=== PATIENT | male | born 1935 | race Caucasian/White ===

== ENCOUNTER 2016-12-06 12:12 | Inpatient (IN) | payer MEDICARE ==
[~2016-12-06] VITALS: Ht 177.8 cm; Wt 77.1 kg
[~2016-12-06 12:12] MED LIST: ADLT ASA LOW81 MG PO; ALLOPURINOL300 MG PO; ALTOPREV20 MG OR; AMLODIPINE10 MG PO; ASPIRIN325 M1 OR; BENAZEPRIL10 M1 PO; BENAZEPRIL10 MG PO; BENTYL10 MG PO; CENTRAVITES PO; CENTRUM OR; CIPRO750 MG PO; CLOPIDOGREL75 MG PO; COZAAR50 MG PO; CRESTOR10 MG PO; CRESTOR20 MG PO; CRESTOR5 MG; DICLOFENAC SODI75 MG PO; DICLOFENAC75 MG PO; DIGOXIN0.25 MG PO; DOCUSATE CAL240 MG PO; DOXYCYCL HYC100 MG PO; EQL ASPIRIN325 MG OR; FENOFIBRATE134 MG OR; FISH OIL1000 MG PO; FISH OIL1200 MG OR; FLOMAX0.4 MG OR; GLIPIZIDE ER5 M1 PO; GLIPIZIDE5 MG OR; GLIPIZIDE5 MG PO; GLUCOPHAGE1000 MG OR; GLYB/METFO5 MG/500 M OR; KLOR-CON 1010 ME1 PO; LANOXIN0.25 MG OR; LASIX 20 MG TAB20 MG PO; LEVOTHROID125 MCG PO; LEVOTHYROXIN50 MC1 PO; LEVOTHYROXIN75 MC1 PO; LIPITOR20 MG OR; LOVASTATIN40 MG OR; LOVAZA; LYRICA75 MG PO; MECLIZINE12.5 M1 OR; MEDDOSEPAK PO; METFORMIN1000 MG PO; METOPROL TAR100 M1 PO; METOPROL TAR100 MG PO; METOPROLOL TART50 MG PO; METOPROLOL50 MG OR; NIASPAN500 MG OR; NITROSTAT0.4 MG SL; NORCO1 TA1 PO; PLAVIX75 MG PO; POT CHLORIDE10 ME1 PO; PREVNAR 13 IM; RAN; RANEXA PO; RANEXA500 MG PO; SAVAYSA30 MG PO; TRICOR145 MG OR; TYLENOL 500MG TAB PO; VOLTAREN - GENE75 MG PO; WARFARIN5 MG PO; ZITHROMAX1 GM PO; ZYPREXA2.5 MG PO; [UNRECOGNIZED DRUG - OTHER] PO
[2016-12-06 13:06] LABS: HEMATOCRIT 43.6 % (39.0-50.0); HEMOGLOBIN 15.4 g/dl (14.0-18.0); IMMATURE GRANULOCYTES 0.8 % (0.0-1.0); MEAN CORPUSCULAR HGB 30.7 pG CALC (26.0-32.0); MEAN CORPUSCULAR HGB CONC 35.3 g/L CALC (32.0-36.0); NEUT# 6.84 thou/uL (1.82-7.42); RED BLOOD COUNT 5.01 mill/uL (4.70-6.10); RED CELL DISTRI WIDTH 12.4 % (11.5-15.5)
[2016-12-06 13:17] LABS: INTERNATIONAL NORMALIZED RATIO 2.3 RATIO (0.7-1.3); PROTHROMBIN TIME 27.2 SECONDS (9.0-12.5)
[2016-12-06 13:18] LABS: ALBUMIN 4.2 g/dL (3.2-5.0); ALKALINE PHOSPHATASE 105 u/l (38-126); ANION GAP 17 (6-22 (CALC)); BILIRUBIN, TOTAL 1.6 mg/dL (0.0-1.4); BUN 13 mg/dL (8-23); BUN/CREATININE RATIO 13 (12-20 (CALC)); CALCIUM 9.5 mg/dL (8.4-10.2); CARBON DIOXIDE 23 mmol/l (22-30); CHLORIDE 107 mmol/l (95-108); GFR > 60 ML/MIN (>=60 (CALC)); GFR FOR AFR.AMER. > 60 ML/MIN (>=60 (CALC)); GLUCOSE 119 mg/dL (82-115); POTASSIUM 3.8 mmol/l (3.5-5.1); SGOT/AST 19 u/l (19-48); SGPT/ALT 22 u/l (11-66); SODIUM 143 mmol/l (137-146); TOTAL PROTEIN 7.3 g/dL (6.3-8.2)
[2016-12-06] MEDS ORDERED: CRESTOR10 MG PO (13:23)
[2016-12-06] MEDS ORDERED: METOPROL TAR100 MG PO (13:24)
[2016-12-06] MEDS ORDERED: ALLOPURINOL300 MG PO (13:27)
[2016-12-06] MEDS ORDERED: METFORMIN500 MG PO (13:28)
[2016-12-06] MEDS ORDERED: ASPIRIN81 MG PO (13:29)
[2016-12-06 14:30] VITALS: BP 126/77
[2016-12-06 14:53] LABS: URINE BILIRUBIN - DIPSTICK NEGATIVE (NEGATIVE); URINE BLOOD DIPSTICK NEGATIVE (NEGATIVE); URINE CLARITY CLEAR; URINE COLOR YELLOW; URINE GLUCOSE - DIPSTICK NEGATIVE (NEGATIVE); URINE KETONE TRACE mg/dL (NEGATIVE); URINE LEUK ESTERASE NEGATIVE (NEGATIVE); URINE NITRITE - DIPSTICK NEGATIVE (Negative); URINE PH 5.5 (4.5-8.0); URINE PROTEIN - DIPSTICK NEGATIVE (NEG-TRACE); URINE SPECIFIC GRAVITY >=1.030; URINE UROBILINOGEN - DIPSTICK 0.2 E.U./dL (0.2)
[2016-12-06] MEDS ORDERED: LEVOTHYROXIN125 MCG PO (15:21)
[2016-12-06] MEDS ORDERED: AMLODIPINE5 MG PO (15:21)
[2016-12-06] MEDS ORDERED: ISOSORB MONO30 MG PO (15:22)
[2016-12-06] MEDS ORDERED: METOPROL TAR25 MG PO (15:22)
[2016-12-06] MEDS ORDERED: MULTI VIT PO (15:26)
[2016-12-06] MEDS ORDERED: LIPITOR20 M1 PO (15:26)
[2016-12-06] MEDS ORDERED: COUMADIN5 MG PO (15:27)
[2016-12-06 18:55] VITALS: BP 147/77
[2016-12-07] VITALS (11 sets, daily range): BP systolic 123–155; BP diastolic 54–90
[2016-12-07 08:18] LABS: INTERNATIONAL NORMALIZED RATIO 1.3 RATIO (0.7-1.3); PROTHROMBIN TIME 14.5 SECONDS (9.0-12.5)
[2016-12-08] VITALS (7 sets, daily range): BP systolic 109–147; BP diastolic 58–80
[2016-12-08 04:49] LABS: HEMATOCRIT 31.7 % (39.0-50.0); IMMATURE GRANULOCYTES 0.5 % (0.0-1.0); MEAN CELL VOLUME 88.8 fL CALC (80.0-100.0); MEAN CORPUSCULAR HGB 30.8 pG CALC (26.0-32.0); MEAN CORPUSCULAR HGB CONC 34.7 g/L CALC (32.0-36.0); NEUT# 7.16 thou/uL (1.82-7.42); RED BLOOD COUNT 3.57 mill/uL (4.70-6.10)
[2016-12-08 05:12] LABS: ANION GAP 10 (6-22 (CALC)); BUN 9 mg/dL (8-23); BUN/CREATININE RATIO 11 (12-20 (CALC)); CALCIUM 7.8 mg/dL (8.4-10.2); CARBON DIOXIDE 24 mmol/l (22-30); CHLORIDE 104 mmol/l (95-108); CREATININE 0.8 mg/dL (0.7-1.3); GFR > 60 ML/MIN (>=60 (CALC)); GFR FOR AFR.AMER. > 60 ML/MIN (>=60 (CALC)); GLUCOSE 116 mg/dL (82-115); POTASSIUM 3.5 mmol/l (3.5-5.1); SODIUM 134 mmol/l (137-146)
[2016-12-08 09:49] LABS: HEMATOCRIT 30.5 % (39.0-50.0); HEMOGLOBIN 10.8 g/dl (14.0-18.0)
[2016-12-08 10:05] LABS: INTERNATIONAL NORMALIZED RATIO 1.3 RATIO (0.7-1.3); PROTHROMBIN TIME 13.8 SECONDS (9.0-12.5)
[2016-12-09 04:04] VITALS: BP 156/62
[2016-12-09 05:48] LABS: HEMATOCRIT 31.4 % (39.0-50.0); IMMATURE GRANULOCYTES 0.5 % (0.0-1.0); MEAN CELL VOLUME 87.5 fL CALC (80.0-100.0); MEAN CORPUSCULAR HGB 30.6 pG CALC (26.0-32.0); NEUT# 6.79 thou/uL (1.82-7.42); RED BLOOD COUNT 3.59 mill/uL (4.70-6.10); RED CELL DISTRI WIDTH 12.1 % (11.5-15.5)
[2016-12-09 06:06] LABS: INTERNATIONAL NORMALIZED RATIO 1.2 RATIO (0.7-1.3); PROTHROMBIN TIME 12.7 SECONDS (9.0-12.5)
[2016-12-09 06:10] LABS: ANION GAP 12 (6-22 (CALC)); BUN 11 mg/dL (8-23); BUN/CREATININE RATIO 13 (12-20 (CALC)); CALCIUM 8.7 mg/dL (8.4-10.2); CARBON DIOXIDE 27 mmol/l (22-30); CHLORIDE 102 mmol/l (95-108); CREATININE 0.9 mg/dL (0.7-1.3); GFR > 60 ML/MIN (>=60 (CALC)); GFR FOR AFR.AMER. > 60 ML/MIN (>=60 (CALC)); GLUCOSE 119 mg/dL (82-115); POTASSIUM 3.5 mmol/l (3.5-5.1); SODIUM 137 mmol/l (137-146)
[2016-12-09 08:54] VITALS: BP 108/61
[2016-12-09 17:22] VITALS: BP 127/76
[2016-12-09 19:10] VITALS: BP 113/68
[2016-12-09 23:40] VITALS: BP 116/71
[2016-12-10 05:05] VITALS: BP 118/74
[2016-12-10 06:32] LABS: HEMATOCRIT 31.1 % (39.0-50.0); HEMOGLOBIN 10.9 g/dl (14.0-18.0)
[2016-12-10 06:59] LABS: INTERNATIONAL NORMALIZED RATIO 1.3 RATIO (0.7-1.3); PROTHROMBIN TIME 13.9 SECONDS (9.0-12.5)
[2016-12-10 09:28] VITALS: BP 113/66
[2016-12-10 11:21] VITALS: BP 114/74
[2016-12-10] MEDS ORDERED: PERCOCET 10/31 COMBO PO (14:25)
[2016-12-10 15:53] VITALS: BP 103/60
== END 2016-12-10 17:17 | DRG 482 ==
LOC: ENPENDDIS → ED 12:12 → ED-I 13:21 → ED 13:43 → MS2 13:44
PROVIDERS: Emergency Medicine; Internal Medicine; Orthopaedic Surgery; ADMIT Internal Medicine; ATTEND Internal Medicine
PROC: 0T9B70Z Drainage of Bladder with Drainage Device, Via Natural or Artificial Opening (ICD-10-PCS; 2016-12-06)
PROC: 0QS604Z Reposition Right Upper Femur with Internal Fixation Device, Open Approach (ICD-10-PCS; principal; 2016-12-07)
DX: S72.141A Displaced intertrochanteric fracture of right femur, initial encounter for closed fracture (principal); I48.91 Unspecified atrial fibrillation; Z95.1 Presence of aortocoronary bypass graft; I10 Essential (primary) hypertension; I25.10 Atherosclerotic heart disease of native coronary artery without angina pectoris; E03.9 Hypothyroidism, unspecified; H91.90 Unspecified hearing loss, unspecified ear; R42 Dizziness and giddiness; M19.90 Unspecified osteoarthritis, unspecified site; W18.30XA Fall on same level, unspecified, initial encounter; Y92.000 Kitchen of unspecified non-institutional (private) residence as the place of occurrence of the external cause; Z95.5 Presence of coronary angioplasty implant and graft; Z85.46 Personal history of malignant neoplasm of prostate; Z79.01 Long term (current) use of anticoagulants
CPT/HCPCS: J1650

== ENCOUNTER 2017-04-03 10:10 | Emergency (ER) | payer MEDICARE ==
[~2017-04-03] VITALS: Ht 177.8 cm; Wt 77.0 kg
[~2017-04-03 10:10] MED LIST changes: +AMLODIPINE5 MG PO; +ASPIRIN81 MG PO; +COUMADIN5 MG PO; +ISOSORB MONO30 MG PO; +LEVOTHYROXIN125 MCG PO; +LIPITOR20 M1 PO; +METFORMIN500 MG PO; +METOPROL TAR25 MG PO; +MULTI VIT PO; +PERCOCET 10/31 COMBO PO
[2017-04-03] MEDS ORDERED: MELOXICAM15 MG PO (10:19)
[2017-04-03 10:33] LABS: HEMATOCRIT 45.8 % (39.0-50.0); HEMOGLOBIN 15.7 g/dl (14.0-18.0); IMMATURE GRANULOCYTES 0.4 % (0.0-1.0); MEAN CELL VOLUME 87.6 fL CALC (80.0-100.0); MEAN CORPUSCULAR HGB CONC 34.3 g/L CALC (32.0-36.0); NEUT# 10.25 thou/uL (1.82-7.42); RED BLOOD COUNT 5.23 mill/uL (4.70-6.10)
[2017-04-03 10:49] LABS: ALBUMIN 4.9 g/dL (3.2-5.0); ALKALINE PHOSPHATASE 119 u/l (38-126); ANION GAP 21 (6-22 (CALC)); BILIRUBIN, TOTAL 3.1 mg/dL (0.0-1.4); BUN 44 mg/dL (8-23); BUN/CREATININE RATIO 40 (12-20 (CALC)); CARBON DIOXIDE 23 mmol/l (22-30); CHLORIDE 106 mmol/l (95-108); CREATININE 1.1 mg/dL (0.7-1.3); GFR > 60 ML/MIN (>=60 (CALC)); GFR FOR AFR.AMER. > 60 ML/MIN (>=60 (CALC)); GLUCOSE 146 mg/dL (82-115); POTASSIUM 4.2 mmol/l (3.5-5.1); SGOT/AST 42 u/l (19-48); SGPT/ALT 28 u/l (11-66); SODIUM 145 mmol/l (137-146); TOTAL PROTEIN 8.4 g/dL (6.3-8.2)
[2017-04-03 10:58] LABS: ACT PARTIAL THROMBO TIME 33.1 SECONDS (20.0-32.5); PROTHROMBIN TIME 23.2 SECONDS (9.0-12.5)
[2017-04-03 11:01] LABS: MYOGLOBIN 170 ng/mL (0 - 121)
[2017-04-03 11:32] VITALS: BP 140/66
[2017-04-03 12:04] LABS: URINE BLOOD DIPSTICK TRACE-LYSED (NEGATIVE); URINE CLARITY CLEAR; URINE COLOR YELLOW; URINE GLUCOSE - DIPSTICK NEGATIVE (NEGATIVE); URINE KETONE TRACE mg/dL (NEGATIVE); URINE LEUK ESTERASE NEGATIVE (NEGATIVE); URINE NITRITE - DIPSTICK NEGATIVE (Negative); URINE PH 5.5 (4.5-8.0); URINE PROTEIN - DIPSTICK 100 mg/dL (NEG-TRACE); URINE SPECIFIC GRAVITY >=1.030; URINE UROBILINOGEN - DIPSTICK 0.2 E.U./dL (0.2)
[2017-04-03 12:10] LABS: URINE BILIRUBIN - DIPSTICK NEGATIVE (NEGATIVE)
[2017-04-03 12:25] LABS: URINE RBC 0-2 RBC/hpf (0-5)
== END 2017-04-03 11:32 | disposition short-term general hospital (02) ==
LOC: ED 10:10
PROVIDERS: Emergency Medicine
PROC: 0BH17EZ Insertion of Endotracheal Airway into Trachea, Via Natural or Artificial Opening (ICD-10-PCS; principal; 2017-04-03)
PROC: 0T9B70Z Drainage of Bladder with Drainage Device, Via Natural or Artificial Opening (ICD-10-PCS; 2017-04-03)
DX: R41.82 Altered mental status, unspecified (principal); I48.91 Unspecified atrial fibrillation; Z79.01 Long term (current) use of anticoagulants; I25.810 Atherosclerosis of coronary artery bypass graft(s) without angina pectoris; Z98.61 Coronary angioplasty status; I10 Essential (primary) hypertension; Z95.1 Presence of aortocoronary bypass graft; R00.0 Tachycardia, unspecified; I65.1 Occlusion and stenosis of basilar artery
CPT/HCPCS: Q9967